=== PATIENT | female | born 1970 | race Two or more races ===

== ENCOUNTER 2017-09-10 23:51 | Emergency (ER) | payer MEDICAID ==
--- OUTSIDE RECORDS SUMMARY | 2017-09-11 00:08 | XMS REPORT ---
:1970 External Reference #:[id number] Author Organization [facility] Address [address] [address] Phone [phone] Care Team Providers Name Role Phone Lizeth Angeles MD Primary Care Physician Unavailable Payers Type Date Identification Numbers Payment Provider Subscriber Commercial Policy Number: [id number] Mahin Kaur PayID: [id number] [address] [place] [phone] Commercial Expires: 2017 Policy Number: [id number] Mahin aKur PayID: [id number] [address] [place] [phone] Problems Description No Information Family History Date Family Member(s) Problem(s) Comments General No Current Problems Social History Type Date Description Comments Lives With Family Occupation Unemployed ETOH Use Denies alcohol use Smoking Patient has never smoked Exercise Type/Frequency Does not exercise Allergies, Adverse Reactions, Alerts Date Description Reaction Status Severity Comments 07/16/2017 NKDA active Medications Medication Date Status Form Strength Qnty SIG Indications Ordering Provider No Active 09/11/19 Active Unknown Medications 18 Sulfamethoxazole Hx Tablets 800-160mg by mouth Unknown /Trimethoprim DS 00 - twice a 09/10/19 day 18 Trimethoprim Hx Tablets 100mg one by Unknown 00 - mouth 09/10/19 twice a 18 day x 10 days Medications Administered in Office Medication Date Status Form Strength Qnty SIG Indications Ordering Provider Depomedrol Administered Injection Vicky 40MG Ameya Ruano M.D. Depomedrol Administered Injection Vicky 40MG 018 Reyes Ruano Vital Signs Date Vital Result Comment 09/10/2017 Height 62 inches 5'2" Weight 168.00 lb Heart Rate 105 /min Respiratory Rate 15 /min Pain Level 4 BMI (Body Mass Index) 30.7 kg/m2 07/16/2017 Height 62 inches 5'2" Weight 168.00 lb Heart Rate 83 /min BP Systolic 126 mmHg BP Diastolic 80 mmHg Body Temperature 96.4 F BMI (Body Mass Index) 30.7 kg/m2 Results Description No Information Procedures Date CPT Code Description Status 09/10/2017 Injection, Carpal Tunnel Completed 07/16/2017 Inject/Drain Joint/Bursa Major Completed Encounters Type Date Location Provider CPT E/M Dx Office Visit 07/16/2017 Orthopedic Services Vicky Ruano, [address]99 M75.32 9:30a Of [facility] M75.31 Plan of Care 09/10/2017 - Vicky Ruano M.D.G56.02 Carpal tunnel syndrome, left upper limbFollow up:Follow up: As [id number] Carpal tunnel syndrome, right upper limbFollow up:Follow up: 4-6 exdlmM41.32 Calcific tendinitis of left kiweaqkiN59.31 Calcific tendinitis of right shoulder
[2017-09-11] MEDS ORDERED: Ketorolac INJ* 60 MG/2 ML VIAL IM ONE (01:09)
[2017-09-11] MEDS ORDERED: oxyCODONE/Acetamin 5/325 MG* TAB PO ONE (01:09)
--- NOTE | 2017-09-11 03:10 | ED ---
Jay Evans Stephanie, scribed for Elle Vazquez MD on 09/11/17 at 0116 . Upper Extremity Pain - HPI Summary HPI Summary: The pt is a 47 y/o F presenting to the ED with c/o bilateral wrist pain that began at 10:00 today s/p steroid injection for carpel tunnel by Dr. Ruano. Symptoms include bilateral forearm pain. The pt denies fever. - History of Current Complaint Chief Complaint: EDExtremityUpper Stated Complaint: BOTH ARMS SWOLLEN Time Seen by Provider: 09/11/17 00:59 Hx Obtained From: Patient, Family/Department Head - son as translater Onset/Duration: Started Hours Ago - 13, Still Present Timing: Constant Pain Location: Forearm - bilaterally, Wrist - bilaterally Aggravating Factor(s): Nothing Alleviating Factor(s): Nothing Associated Signs & Symptoms: Negative: Fever - Allergies/Home Medications Allergies/Adverse Reactions: Allergies Allergy/AdvReac Type Severity Reaction Status Date / Time No Known Allergies Allergy Verified 09/10/17 23:59 PMH/Surg Hx/FS Hx/Imm Hx Sensory History: Denies: Hx Legally Blind EENT History: Denies: Hx Deafness - Surgical History Surgery Procedure, Year, and Place: NONE Infectious Disease History: No Infectious Disease History: Denies: Traveled Outside the [place] in Last 30 Days - Family History Known Family History: Positive: Unknown - Reviewed and noncontributory - Social History Occupation: Unemployed Lives: With Family Alcohol Use: None Substance Use Type: Reports: None Smoking Status (MU): Never Smoked Tobacco Review of Systems Negative: Fever Positive: Other - bilateral wrist/forearm pain All Other Systems Reviewed And Are Negative: Yes Physical Exam - Summary Physical Exam Summary: VITAL SIGNS: Reviewed. GENERAL: Patient is a well-developed and nourished FEMALE who is lying comfortable in the stretcher. Patient is not in any acute respiratory distress. HEAD AND FACE: No signs of trauma. No ecchymosis, hematomas or skull depressions. No sinus tenderness. EYES: PERRLA, EOMI x 2, No injected conjunctiva, no nystagmus. EARS: Hearing grossly intact. Ear canals and tympanic membranes are within normal limits. MOUTH: Oropharynx within normal limits. NECK: Supple, trachea is midline, no adenopathy, no JVD, no carotid bruit, no c- spine tenderness, neck with full ROM. CHEST: Symmetric, no tenderness at palpation LUNGS: Clear to auscultation bilaterally. No wheezing or crackles. CVS: Regular rate and rhythm, S1 and S2 present, no murmurs or gallops appreciated. ABDOMEN: Soft, non-tender. No signs of distention. No rebound no guarding, and no masses palpated. Bowel sounds are normal. EXTREMITIES: FROM in all major joints, no edema, no cyanosis or clubbing. tenderness over palmar surface of both wrists. NEURO: Alert and oriented x 3. No acute neurological deficits. Speech is normal and follows commands. SKIN: Dry and warm Triage Information Reviewed: Yes Vital Signs On Initial Exam: Initial Vitals Temp Pulse Resp BP Pulse Ox 98.1 F 86 16 115/85 100 09/10/17 23:56 09/10/17 23:56 09/10/17 23:56 09/10/17 23:56 09/10/17 23:56 Vital Signs Reviewed: Yes Diagnostics - Vital Signs Vital Signs Temp Pulse Resp BP Pulse Ox 09/10/17 23:56 98.1 F 86 16 115/85 100 - Laboratory Lab Statement: Any lab studies that have been ordered have been reviewed, and results considered in the medical decision making process. Course/Dx - Course Course Of Treatment: The pt states she feels better. She will be discharged with pain medications for home. She is advised to follow up with Dr. Ruano, the orthopedist who administered the steroid injections, tomorrow. - Diagnoses Provider Diagnoses: Bilateral carpal tunnel syndrome, Bilateral wrist pain Discharge - Discharge Plan Condition: Stable Disposition: HOME Prescriptions: Ibuprofen TAB* [Motrin TAB* 800 MG] 800 mg PO Q6H PRN #30 tab PRN Reason: Pain oxyCODONE/Acetamin 5/325 MG* [Percocet 5/325 TAB*] 1 tab PO Q6H PRN #14 tab MDD 4 PRN Reason: Pain Patient Education Materials: Wrist Injury (ED) Referrals: Lizeth Angeles MD [Primary Care Provider] - Vicky Ruano MD [Medical Doctor] - 1 Day Additional Instructions: RETURN TO EMERGENCY DEPARTMENT FOR ANY NEW OR WORSENING SYMPTOMS The documentation as recorded by the Jay palma Stephanie accurately reflects the service I personally performed and the decisions made by George lynch Abdul, MD.
[2017-09-11 03:39] VITALS: BP 103/52
== END 2017-09-11 03:40 | disposition home or self-care (01) ==
LOC: ED 23:51
DX: G56.03 Carpal tunnel syndrome, bilateral upper limbs (principal); M25.532 Pain in left wrist; M25.531 Pain in right wrist
CPT/HCPCS: 96372; 99282; A9270-GY; J1885

== ENCOUNTER 2017-10-10 16:57 | Emergency (ER) | payer OTHER ==
--- OUTSIDE RECORDS SUMMARY | 2017-10-10 17:06 | XMS REPORT ---
:1970 External Reference #:[id number] Author Organization [facility] Address [address] [address] Phone [phone] Care Team Providers Name Role Phone Lizeth Angeles MD Primary Care Physician Unavailable Payers Type Date Identification Numbers Payment Provider Subscriber Commercial Policy Number: [id number] Mahin Kaur PayID: [id number] [address] [place] [phone] Commercial Expires: 2017 Policy Number: [id number] Mahin Kaur PayID: [id number] [address] [place] [phone] Problems Description No Information Family History Date [...] Administered Injection Vicky 40MG 018 Reyes Ruano Depomedrol Administered Injection Vicky 40MG 018 Reyes Ruano Depomedrol Administered Injection Vicky 40MG 018 Reyes Ruano Vital Signs Date Vital Result Comment 10/09/2017 Height 62 inches 5'2" Heart Rate 96 /min BP Systolic 128 mmHg BP Diastolic 76 mmHg Respiratory Rate 16 /min Body Temperature 97.0 F Pain Level 2 09/10/2017 Height 62 inches 5'2" Weight 168.00 [...] Information Procedures Date CPT Code Description Status 10/03/2017 Mammogram Completed 09/10/2017 Injection, Carpal Tunnel Completed 07/16/2017 Inject/Drain Joint/Bursa Major Completed Encounters Type Date Location Provider CPT E/M Dx Office Visit 07/16/2017 Orthopedic Services Vicky Ruano, [address]74 M75.32 9:30a Of Anisa Chambers M75.31 Plan of Care Future Appointment(s):10/17/2017 10:15 am - Dave Moreno M.D. at [facility]10/09/2017 - Vicky Ruano M.D.G56.03 Carpal tunnel syndrome , bilateral upper limbsFollow up:Follow up: As [id number] Calcific tendinitis of right mevjburuC39.32 Calcific tendinitis of left shoulder
[2017-10-10 17:37] VITALS: BP 124/68
--- NOTE | 2017-10-10 18:04 | UC ---
Skin Complaint HPI - HPI Summary HPI Summary: Conducted in Russian. Patient states she has been running with an elastic fabric around her abdomen in order to reduce volume and loose weight 3 days ago. She states she noticed an intense itching on the abdomen and started scratching. The area is red and she has noticed that it has increased in size. She states she has avoided scratching as much as possible and cut her nails short but the itching is intense. Denies pain, fever, or swelling on the area. She has applied an antibiotic topically that did not change her symptoms. - History of Current Complaint Chief Complaint: UCRash Stated Complaint: RASH ON FLANK Hx Obtained From: Patient Hx Last Menstrual Period: unknown ?: No Onset/Duration: Sudden Onset, Lasting Days Skin Exposure Onset/Duration: Days Ago Onset Severity: Moderate Current Severity: Moderate Pain Intensity: 7 Location: Discrete, Other - abdomen Aggravating Factor(s): Humidity Associated Signs & Symptoms: Positive: Negative Related History: Other: - possible reaction to fabric - Allergy/Home Medications Allergies/Adverse Reactions: Allergies Allergy/AdvReac Type Severity Reaction Status Date / Time No Known Allergies Allergy Verified 10/10/17 17:37 Review of Systems All Other Systems Reviewed And Are Negative: Yes PMH/Surg Hx/FS Hx/Imm Hx Previously Healthy: Yes - Surgical History Surgical History: None Surgery Procedure, Year, and Place: NONE - Family History Known Family History: Positive: Unknown - Reviewed and noncontributory - Social History Alcohol Use: None Substance Use Type: None Smoking Status (MU): Never Smoked Tobacco Physical Exam Triage Information Reviewed: Yes Vital Signs: Initial Vital Signs Temp 98.6 F 10/10/17 17:24 Pulse 85 10/10/17 17:24 Resp 16 10/10/17 17:24 BP 124/68 10/10/17 17:24 Pulse Ox 100 10/10/17 17:24 Vital Signs Reviewed: Yes Neck: Positive: Nontender, No Lymphadenopathy Respiratory: Positive: Chest non-tender, Lungs clear, Normal breath sounds Cardiovascular: Positive: RRR, No Murmur, Pulses Normal Abdomen Description: Positive: Nontender, No Organomegaly, Soft Bowel Sounds: Positive: Present Skin Exam: Other - rectangular erythematous area with clearly delineated borders and superficial intradermal echymosis on inferior aspect and exfoliation on superior aspect. Course/Dx - Course Course Of Treatment: Start medication hydroxyzine 1-2 tab qhs as needed, apply hydrocort cream 2.5% tid for 1 week. Avoid fabric. - Diagnoses Provider Diagnoses: Contact dermatitis Discharge - Sign-Out/Discharge Documenting (check all that apply): Discharge - Discharge Plan Condition: Stable Disposition: HOME Prescriptions: Hydrocortisone 2.5% CREAM(NF) 1 applic TOPICAL QID 4 Days #1 tube hydrOXYzine HCL TAB* [Atarax 10 MG TAB*] 10 mg PO BEDTIME PRN 7 Days #20 tab PRN Reason: Pruritis Patient Education Materials: Contact Dermatitis (ED), Hydroxyzine (By mouth), Hydrocortisone (On the skin) Print Language: TRINIDADIAN Referrals: Lizeth Angeles MD [Primary Care Provider] - - Billing Disposition and Condition Condition: STABLE Disposition: HOME Images Front/Back of Body, Lg (Moca): 1 - rectangular erythematous area of skin with clearly delineated borders measuring 5.5x14 cm
== END 2017-10-10 18:18 | disposition home or self-care (01) ==
LOC: UCEAST 16:57
DX: L25.9 Unspecified contact dermatitis, unspecified cause (principal)
CPT/HCPCS: 99212; G0463

== ENCOUNTER 2017-11-27 07:10 | Day surgery (SDC) | payer OTHER ==
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
[~2017-11-27 07:10] MED LIST: Buffered Lidocaine 0.9% SYRIN* 5 ML/SYR SYRINGE INTRADERM ONE; Dexamethasone IV* 4 MG/ML 1 ML (4 MG) IV SLOW PU ONE; Famotidine IV* 10 MG/ML 2 ML (20 mg) IV ONE
[2017-11-27] MEDS ORDERED: Famotidine IV* 10 MG/ML 2 ML (20 mg) ONE ×2 (07:13→09:33)
[2017-11-27] MEDS ORDERED: Dexamethasone IV* 4 MG/ML 1 ML (4 MG) ONE ×2 (07:13→09:33)
[2017-11-27] MEDS ORDERED: Lidocaine 2.5%/Prilocain 2.5%* 5 GM TUBE ONE (07:14)
[2017-11-27] MEDS ORDERED: Buffered Lidocaine 0.9% SYRIN* 5 ML/SYR SYRINGE ONE (07:14)
[2017-11-27] MEDS ORDERED: ceFAZolin 2 GM PREMIX (*) 2 GM/50 ML BAG IVPB ONE (07:14)
[2017-11-27] MEDS ORDERED: Lidocaine 1% INJ* 10 MG/ML 30 ML SDV ONE (09:22)
--- NOTE | 2017-11-27 09:25 | RAD ---
INDICATION: Right breast mass COMPARISON: Mammogram and sonogram October 03, 2017 TECHNIQUE/FINDINGS: Informed consent was obtained through the use of an lead pressman roto gravure printing. A routine timeout procedure protocol was utilized. The right breast was then prepped in usual fashion and the superficial right breast mass was localized with a 5 cm Naqvi wire/needle using standard technique. Lidocaine was utilized for local anesthesia. A two-view mammogram obtained postprocedure demonstrated placement of the wire immediately adjacent to the lesion. The patient tolerated the procedure well. There were no complications. IMPRESSION: SUCCESSFUL WIRE NEEDLE LOCALIZATION. THE SPECIMEN IS PENDING.
--- NOTE | 2017-11-27 09:25 | RAD ---
INDICATION: Right breast mass COMPARISON: Mammogram and sonogram October 03, 2017 TECHNIQUE/FINDINGS: Informed consent was obtained through the use of an inventory control analyst. A routine timeout procedure protocol was utilized. The right breast was then prepped in usual fashion and the superficial right breast mass was localized with a 5 cm Naqvi wire/needle using standard technique. Lidocaine was utilized for local anesthesia. A two-view mammogram obtained postprocedure demonstrated placement of the wire immediately adjacent to the lesion. The patient tolerated the procedure well. There were no complications. IMPRESSION: SUCCESSFUL WIRE NEEDLE LOCALIZATION. THE SPECIMEN IS PENDING.
[2017-11-27] MEDS ORDERED: DiMENhydriNATE IV* 50 MG/ML VIAL IV PUSH PRN (09:53)
[2017-11-27] MEDS ORDERED: HYDROcodone/ACETAMIN 5-325 MG* 1 TAB PO PRN (09:53)
[2017-11-27] MEDS ORDERED: oxyCODONE/Acetamin 5/325 MG* TAB PO PRN (09:53)
[2017-11-27] MEDS ORDERED: Naloxone* 0.4 MG/ML 1 ML VIAL IV PRN (09:53)
[2017-11-27] MEDS ORDERED: Ondansetron INJ* 2 MG/ML VIAL IV PRN (09:53)
[2017-11-27] MEDS ORDERED: fentaNYL* 50 MCG/ML 2 ML VIAL (100 MCG VIAL) IV PRN (09:53)
[2017-11-27] MEDS ORDERED: Midazolam* 1 MG/ML 5 ML VIAL (5 MG) ONE (09:54)
[2017-11-27] MEDS ORDERED: fentaNYL* 50 MCG/ML 2 ML VIAL (100 MCG VIAL) ONE ×2 (09:54→10:15)
[2017-11-27] MEDS ORDERED: Lidocaine 2% PF * 5 ML VIAL ONE (10:08)
[2017-11-27] MEDS ORDERED: Propofol* 10 MG/ML 20 ML BTL IV PUSH ONE (10:08)
[2017-11-27] MEDS ORDERED: Ketorolac INJ* 30 MG/ML 1 ML VIAL ONE (12:00)
[2017-11-27 12:34] VITALS: BP 114/70
--- NOTE | 2017-11-28 10:48 | OP ---
CC: Dr. Moreno; Dr. Angeles OPERATIVE REPORT: DATE OF OPERATION: 11/27/17 DATE OF : 66 SURGEON: Dave Moreno MD RESULTS ENGINEER: None. ANESTHESIOLOGIST: Dr. Garcia. ANESTHESIA: LMAC anesthesia. PRE-OP DIAGNOSIS: Right breast mass. POST-OP DIAGNOSIS: Right breast mass. OPERATIVE PROCEDURE: Needle localizing excision of right breast mass. DESCRIPTION OF PROCEDURE: Patient was supine on the operating table. After adequate intravenous sed ation, compression stockings, Moshe Hugger warmer, and intravenous antibiotics, the right breast was p repped with antiseptic, draped in a sterile fashion. Local infiltrative anesthesia was administered. An elliptical incision was created approximately 1 x 5 cm and encompassed the area of the guidewire . A piece of tissue was taken down along the guidewire, although the mass seemed to be at the distal tip of the wire. The initial piece of tissue labeled right breast excision was specimen #1 and yanet ed with the usual marking sutures. The mass, which had not been palpable, but was readily visible onc e I was in there was at the superolateral aspect of the first part and this was taken out as a second piece and sent also fresh to Radiology. A third piece of tissue was taken from the superolateral as pect representing the true margin. A suture was used to yanet that as the true margin. Hemostasis wa s obtained using electrocautery and closure accomplished using 3-0 and 5-0 Vicryl followed by Steri-S trips. She tolerated the procedure well, was awakened and brought to recovery in good condition. Th ere were no complications. No drains. Pathologic specimen as above. Sponge and instrument counts co rrect. Estimated blood loss 30 mL. [id number] #: [id number]
== END 2017-11-27 12:46 | disposition home or self-care (01) ==
LOC: SDS 07:10
PROVIDERS: ATTEND Surgery
DX: D24.1 Benign neoplasm of right breast (principal)
CPT/HCPCS: 77063; 88307; A9270-GY; J0690; J1100; J1885; J2250; J2704; J3010